=== PATIENT | female | born 2000 | race Caucasian/White ===

== ENCOUNTER 2022-09-14 18:51 | Emergency (ER) | payer OTHER, SELFPAY ==
[2022-09-14 19:03] VITALS: BP 156/94; PULSE 96; RESP 20; TEMP 36.8; O2SAT 100; BMI 30.2
--- NOTE | 2022-09-14 19:03 | ED_ITS ---
HPI - Extremity Injury (Lower) General Chief Complaint: Extremity Injury, Lower Stated Complaint: left ankle pain,swelling Time Seen by Provider: 09/14/22 19:47 Source: patient, RN notes reviewed and old records reviewed Mode of arrival: ambulatory History of Present Illness HPI Narrative: 21yo F w/no significant PMHx presenting to the ED c/o increasing swelling/pain to left foot x1 week. States he was seen at urgent care on had x-rays which showed soft tissue swelling otherwise unremarkable. denies known injury/fall or trauma, numbness, tingling, weakness, pedal edema, SOB, travel, history of clots complaint: foot injury Onset (ago): week(s) Related Data Allergies Allergy/AdvReac Type Severity Reaction Status Date / Time No Known Allergies Allergy Verified 09/14/22 19:07 Review of Systems Review of Systems: Constitutional: No Fever, No Chills ENT/Mouth: No Ear Pain, No Nasal Congestion, No sore throat, No Rhinorrhea, No Swallowing Difficulty Cardiovascular: No Chest Pain, No SOB Respiratory: No Cough, No Sputum Gastrointestinal: No Nausea, No Vomiting, No Abdominal pain Musculoskeletal: + joint pain, No Myalgias, + Joint Swelling Skin: No Skin Lesions, No rash Neuro: No Weakness, No Numbness, No Paresthesias Yes all other systems are reviewed and are negative Constitutional: Constitutional: Reports as per [facility] Past Medical History Attestation statement: The following information was validated with the patient. Source: old records reviewed Social History Social History Alcohol intake: never Smoked in Last 30 Days: No Use of substances other than those prescribed or required for medical reasons: No Advance Directives: No Advance Directives Information Provided: No Physical Exam Vital Signs: Vital Signs: Last Vital Signs Temp 98.3 F 09/14/22 19:03 Pulse 89 09/14/22 21:10 Resp 17 09/14/22 21:10 BP 138/79 09/14/22 21:10 Pulse Ox 100 09/14/22 21:10 O2 Del Method Room Air 09/14/22 21:10 BMI result Body Mass Index 30.2 Const: General: cooperative, healthy appearing and no acute distress Orientation/consciousness: patient oriented x3 Limitations: no limitations HEENT: Head: Yes normal to inspection and Yes atraumatic Ears: hearing grossly normal bilaterally General nose exam: Normal external nose present Face and sinus: Yes normal facial exam Eyes: General: appearance normal, both eyes and all related structures EOM: EOMs intact bilaterally Neck: Neck: Yes normal visual inspection and Yes no meningeal signs Resp: Effort & Inspection: normal respiratory effort and no respiratory distress Cardio: Rate: regular rate Peripheral pulses: Peripheral pulses 2+ throughout Skin: Rashes: no rashes Wounds: no wounds Neuro: General: patient oriented x3, tone normal and no meningeal signs Gait exam (Neuro): Antalgic gait present (Limping gait) Extrem: Other: +Left foot with faint ecchymosis & ttp to distal dorsal aspect. No appreciable swelling, erythema or LLE pitting edema. NV intact. No calf tenderness. No plantar ttp Left knee/tib-fib and ankle nontender Course Course Course Narrative: XR foot LT min 3V IMPRESSION: Normal left foot. > Luis wrap applied for comfort and stability. Patient supplied with crutches. Results discussed with patient including worrisome signs and symptoms and strict return precautions, and when to return to the emergency department. They verbalized understanding and feel safe for discharge at this time. Medications Administered Discontinued Medications Generic Name Dose Route Start Last Admin Trade Name Freq PRN Reason Stop Dose Admin Ketorolac Tromethamine 30 mg 09/14/22 20:20 09/14/22 20:54 Ketorolac Tromethamine 30 Mg/Ml Vial IM 09/14/22 20:21 30 mg ONCE ONE Administration Medical Decision Making Medical Decision Making [facility] Narrative: 21yo F w/no significant PMHx presenting to the ED c/o increasing swelling/pain to left foot x1 week. On exam vital signs stable, NAD, nontoxic appearing, physical exam as noted above with left foot dorsal aspect tenderness with faint ecchymosis. No appreciable swelling. No pitting edema. Neurovascularly intact. Concern for occult fracture vs sprain. No evidence of septic joint/arthritis or gout. Lower suspicion for DVT, necrotizing fasciitis or insect bite Plan: Repeat x-rays Please refer to course for remaining clinical decision making, interpretation of labs/imaging results, and discussions with consultants and/or family members. Differential Diagnosis Differential Diagnoses: The differential diagnosis associated with the presentation includes As above Radiology Impression Discussion of test interpretation with radiology: I have reviewed the radiologist's reading. External Record Review External record reviewed: Inpatient record, Office record, Outpatient record, Prior outpatient labs, Prior outpatient radiology, Primary care record and Outside ED record Tests considered The following testing was considered but not selected: Labs considered however not needed at this time without evidence of cellulitis or infection Prescription Management I considered prescription management with: Pain Medication Discharge Plan Discharge Clinical Impression: Foot pain Patient Disposition: Home, Self-Care Instructions: Arthralgia (ED) Additional Instructions: Your x-rays are unremarkable Ice and elevate her foot Wear Luis wrap for comfort and stability. Use crutches as needed You need to follow-up with her doctor and Podiatry If area begins to look infected, is red, pain persists or worsens, you have swelling affecting her entire leg/calf return to the ED Referrals: Piyush Cabral MD [Physician] - Stand Alone Forms: Work/School Release Interventions: ED Discharge Assessment Last Done: 09/14/22 21:12 Discharge Date/Time: 09/14/22 21:13
[2022-09-14 21:10] VITALS: BP 138/79; PULSE 89; RESP 17; O2SAT 100
== END 2022-09-14 21:13 | disposition home or self-care (01) ==
PROVIDERS: Emergency Provider Internal Medicine
DX: M25.572 Pain in left ankle and joints of left foot (principal)
CPT/HCPCS: 73630; 96372; 99284; J1885

== ENCOUNTER 2022-11-14 16:47 | Emergency (ER) | payer OTHER, SELFPAY ==
--- NOTE | ~2022-11-14 | XR_ITS ---
EXAMINATION: XR ANKLE, LEFT CLINICAL INFORMATION: Pain and swelling. COMPARISON: Left foot radiographs dated 09/14/2022. TECHNIQUE: AP, lateral, and mortise views of the left ankle. FINDINGS: Bony alignment and mineralization are normal. The ankle mortise is intact. No fracture, dislocation or left ankle joint effusion is seen. Boehler's angle is normal. There is no calcaneal spur. There is moderate soft tissue swelling, most pronounced adjacent to the medial malleolus. XR/XR ankle LT min 3V IMPRESSION: 1. No fracture, dislocation or left ankle joint effusion is seen. 2. There is moderate soft tissue swelling, most pronounced adjacent to the medial malleolus.
--- NOTE | ~2022-11-14 | US_ITS ---
EXAMINATION: US VENOUS ULTRASOUND WITH DOPPLER LOWER EXTREMITY, LEFT CLINICAL INFORMATION: Pain. COMPARISON: None available. TECHNIQUE: Ultrasound of the deep veins is performed from the hip to the calf with compression sonography and color and pulse Doppler assessment. Spectral analysis with color-flow imaging is performed. FINDINGS: There is normal venous compression and respiratory variation and augmented flow. The visualized common femoral vein, superficial femoral vein, profunda femoral vein, popliteal vein, and the trifurcation region shows no evidence of deep venous thrombosis. There is no significant popliteal fossa cyst. If the patient's symptoms persist, followup ultrasound in 5 days 7 days might be of value to exclude proximal propagation from a non-visualized calf vein. US/US venous duplex LE LT IMPRESSION: No DVT demonstrated in the left lower extremity.
--- NOTE | ~2022-11-14 | XR_ITS ---
EXAMINATION: XR KNEE, LEFT CLINICAL INFORMATION: Fall. Trauma to left knee COMPARISON: None available. TECHNIQUE: Four views of the left knee. FINDINGS: No fracture or joint effusion. Alignment is anatomic. Joint spaces are maintained. No abnormal soft tissue calcification. XR/XR knee LT 4V IMPRESSION: Normal left knee.
[2022-11-14 17:45] VITALS: BP 142/103; PULSE 114; RESP 18; TEMP 36.7; O2SAT 100; BMI 29.3
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
== END 2022-11-14 22:45 | disposition home or self-care (01) ==
PROVIDERS: Emergency Provider Internal Medicine
DX: S80.02XA Contusion of left knee, initial encounter (principal); S93.402A Sprain of unspecified ligament of left ankle, initial encounter; M79.605 Pain in left leg; M25.562 Pain in left knee; R60.0 Localized edema; W01.0XXA Fall on same level from slipping, tripping and stumbling without subsequent striking against object, initial encounter; Y93.9 Activity, unspecified; Y92.9 Unspecified place or not applicable; Y99.9 Unspecified external cause status
CPT/HCPCS: 73564; 73610; 93971; 99283; 99284

== ENCOUNTER 2023-02-14 15:09 | Outpatient (REF) | payer OTHER, SELFPAY ==
--- NOTE | 2023-02-14 15:12 | EMG_ITS ---
Chief complaint: Numbness and tingling on both legs, back pain Reason for referral: Evaluate for radiculopathy or neuropathy Referred by: Vlad ZAPATA Procedure done: Bilateral lower extremity NCS/EMG Precautions and/or limitations: None The limb temperature was monitored continuously and remained between 32-36 degrees C during the performance of the NCS. Nerve Conduction Studies Anti Sensory Summary Table ?Stim Site NR Onset (ms) Norm Onset (ms) Peak (ms) Norm Peak (ms) O-P Amp (?V) Norm O-P Amp Site1 Site2 Delta-0 (ms) Dist (cm) Jose (m/s) Norm Jose (m/s) Left Sural Anti Sensory (Lat Mall) Calf ? 2.6 3.2 <4.0 16.2 >5.0 Calf Lat Mall 2.6 14.0 54 Right Sural Anti Sensory (Lat Mall) Calf ? 2.6 3.3 <4.0 18.1 >5.0 Calf Lat Mall 2.6 14.0 54 Motor Summary Table ?Stim Site NR Onset (ms) Norm Onset (ms) O-P Amp (mV) Norm O-P Amp iAmp (mV) Amp (1st) (%) Site1 Site2 Delta-0 (ms) Dist (cm) Jose (m/s) Norm Jose (m/s) Left Peroneal Motor (Ext Dig Brev) Ankle ? 3.1 <4.0 9.1 >2.5 11.8 100.0 Ankle Ext Dig Brev 3.1 0.0 B Fib ? 8.4 8.3 10.9 91.2 B Fib Ankle 5.3 29.5 56 >40 Poplt ? 9.1 8.4 11.2 92.3 Poplt B Fib 0.7 5.0 71 >40 Right Peroneal Motor (Ext Dig Brev) Ankle ? 3.1 <4.0 4.7 >2.5 5.7 100.0 Ankle Ext Dig Brev 3.1 0.0 B Fib ? 8.3 4.8 5.8 102.1 B Fib Ankle 5.2 29.0 56 >40 Poplt ? 8.9 4.7 5.7 100.0 Poplt B Fib 0.6 5.0 83 >40 Left Tibial Motor (Abd Lipscomb Brev) Ankle ? 2.7 <5 16.5 >2.5 23.0 100.0 Ankle Abd Lipscomb Brev 2.7 0.0 Knee ? 9.3 9.9 15.0 60.0 Knee Ankle 6.6 35.0 53 >40 Right Tibial Motor (Abd Lipscomb Brev) Ankle ? 3.1 <5 16.5 >2.5 25.9 100.0 Ankle Abd Lipscomb Brev 3.1 0.0 Knee ? 8.8 13.4 21.8 81.2 Knee Ankle 5.7 33.0 58 >40 EMG ?Side Muscle Nerve Root Ins Act Fibs Psw Amp Dur Poly Recrt Int Pat Comment Right AbdHallucis MedPlantar S1-2 Nml Nml Nml Nml Nml 0 Nml Complete Right AntTibialis Dp Br Peron L4-5 Nml Nml Nml Nml Nml 0 Nml Complete Right PostTibialis Tibial L5, S1 Nml Nml Nml Nml Nml 0 Nml Complete Right MedGastroc Tibial S1-2 Nml Nml Nml Nml Nml 0 Nml Complete Right VastusMed Femoral L2-4 Nml Nml Nml Nml Nml 0 Nml Complete Left AbdHallucis MedPlantar S1-2 Nml Nml Nml Nml Nml 0 Nml Complete Left AntTibialis Dp Br Peron L4-5 Nml Nml Nml Nml Nml 0 Nml Complete Left PostTibialis Tibial L5, S1 Nml Nml Nml Nml Nml 0 Nml Complete Left MedGastroc Tibial S1-2 Nml Nml Nml Nml Nml 0 Nml Complete Left VastusMed Femoral L2-4 Nml Nml Nml Nml Nml 0 Nml Complete Paraspinal EMG ?Side Muscle Nerve Root Ins Act Fibs Psw Comment Right Lumbar Upper Rami Nml Nml Nml Right Lumbar Mid Rami Nml Nml Nml Right Lumbar Lower Rami Nml Nml Nml Left Lumbar Upper Rami Nml Nml Nml Left Lumbar Mid Rami Nml Nml Nml Left Lumbar Lower Rami Nml Nml Nml FINDINGS: All motor and sensory nerves tested showed normal latencies, amplitudes and conduction velocities. Concentric needle EMG was performed in selected muscles of the bilateral lower extremity and lumbar paraspinals. Study did not reveal signs of electric abnormalities as shown in the table below. IMPRESSION: 1. This is a normal study. 2. There is no electrodiagnostic evidence for peroneal neuropathy, tibial neuropathy, lumbosacral plexopathy, lumbar radiculopathy, or peripheral neuropathy. Thank you for your kind referral. Esther Mcdermott MD, MARIA Board Certified, [place] [employer] and [employer] (ABPMR) Board Certified, [place] Board [employer] Electrodiagnostic [employer] (ABEM) CODIN [id number] x 2 MTDD
== END 2023-02-14 15:10 | disposition home or self-care (01) ==
LOC: HO.NEURO 15:09
PROVIDERS: Visit Provider Physician Assistant
DX: G90.09 Other idiopathic peripheral autonomic neuropathy (principal)
CPT/HCPCS: 95886; 95909

== ENCOUNTER → 2023-02-14 15:12 | Outpatient (BNV) | payer OTHER, SELFPAY | PROVIDERS: Visit Provider Physical Medicine & Rehabilitation | DX: R20.2 Paresthesia of skin (principal); R20.0 Anesthesia of skin; M54.50 Low back pain, unspecified | CPT/HCPCS: 95886; 95909 ==

== ENCOUNTER 2023-11-24 16:31 | Emergency (ER) | payer OTHER, SELFPAY ==
--- NOTE | ~2023-11-24 | CT_ITS ---
EXAMINATION: CT ABDOMEN AND PELVIS WITHOUT CONTRAST CLINICAL INFORMATION: Hematuria. Flank pain. COMPARISON: None available. TECHNIQUE: Multidetector volumetric imaging was performed from the superior aspect of the liver through the pubic symphysis. Sagittal and coronal reformatted images were obtained on the technologist's workstation. This CT examination was performed using dose optimization techniques as appropriate, variously including the following: *Automated exposure control *Adjustment of mA and/or kV according to patient size (this includes techniques or standardized protocols for targeted exams where dose is matched to indication/reason for exam; i.e. extremities or head) *Use of iterative reconstruction technique DLP: 504 mGy-cm FINDINGS: LUNG BASES: The visualized lung bases are unremarkable. LIVER, GALLBLADDER, AND BILIARY TREE: The liver is normal in size, shape, and attenuation. No focal hepatic lesion or biliary ductal dilatation is present. The gallbladder is unremarkable with no evidence of radiopaque gallstones, gallbladder wall thickening, or obvious pericholecystic inflammatory changes. PANCREAS: Unremarkable. SPLEEN: Unremarkable. ADRENAL GLANDS: Unremarkable. KIDNEYS AND URETERS: The kidneys are normal in size, shape, and attenuation. No hydronephrosis, hydroureter, or calculi seen. No perinephric stranding. BLADDER: Unremarkable. GASTROINTESTINAL TRACT: The small and large bowel are unremarkable. The appendix is unremarkable. ABDOMINAL WALL: No significant hernia is appreciated. LYMPH NODES: Normal. VASCULAR: Unremarkable. PELVIC VISCERA: Unremarkable. OSSEOUS STRUCTURES: Unremarkable. CT/CT abdomen pelvis wo IV con IMPRESSION: No significant abnormality. Fleischner guidelines were followed. Electronically signed by: Alexx Leo MD 11/24/2023 09:30 PM EDT
[2023-11-24 16:43] VITALS: BP 146/92; PULSE 101; RESP 20; TEMP 37.2; O2SAT 100; BMI 27.5
--- NOTE | 2023-11-24 16:46 | ED_ITS ---
HPI - General Adult General Chief complaint: General Medical Stated complaint: pain when using the bathroom, blood in urine Time Seen by Provider: 11/24/23 20:18 Source: patient Mode of arrival: ambulatory Limitations: no limitations History of Present Illness ED Provider: Harish TOMAS HPI narrative: 23-year-old female with IgA nephropathy presents to ED for dysuria, mild hematuria, right lower back flank pain. Patient denies any nausea vomiting. Patient denies any fever or chills. Patient denies any recent trauma to abdomen or flank area. Related Data Previous Rx's ?Medication ?Instructions ?Recorded ibuprofen 600 mg tablet 600 mg PO Q6H PRN pain #30 tabs 11/14/22 ciprofloxacin HCl 500 mg tablet 500 mg PO BID 7 days #14 tabs 11/24/23 naproxen 500 mg tablet 500 mg PO BID PRN pain 7 days #14 11/24/23 tabs Allergies Allergy/AdvReac Type Severity Reaction Status Date / Time No Known Allergies Allergy Verified 11/24/23 16:46 Review of Systems 2 Review of Systems: Right lower back flank pain, dysuria, hematuria Yes all other systems are reviewed and are negative [facility] Social History Social History Alcohol intake: never Advance Directives: No Advance Directives Information Provided: No Do you have a plan to hurt others: No Plan Physical Exam ED Vital Signs: Vital Signs - 24 hr 11/24/23 16:43 11/24/23 21:46 11/24/23 23:10 Temperature 98.9 F 97.1 F 97.1 F Pulse Rate 101 H 97 97 Respiratory Rate 20 16 16 Blood Pressure 146/92 H 122/88 122/88 Pulse Oximetry 100 98 98 Oxygen Delivery Method Room Air Room Air Room Air BMI result Body Mass Index 27.5 Const General: cooperative, healthy appearing, comfortable, no acute distress, well developed, alert, awake and Physically active Orientation/consciousness: patient oriented x3 HENMT Head: Yes normal to inspection, Yes No palpable skull fracture present, Yes normocephalic, Yes atraumatic and No abrasion Eyes General: appearance normal, both eyes and all related structures Neck Neck: Yes normal visual inspection, Yes full ROM, Yes no lymphadenopathy, Yes no meningeal signs, Yes trachea midline, Yes supple, No anterior neck swelling and No tender Chest Chest palpation & inspection: normal inspection of the chest and normal palpation of entire chest wall Resp Effort & Inspection: normal respiratory effort and able to speak in complete sentences Auscultation: clear to auscultation bilaterally Cardio Jugular venous distension: no JVD Heart sounds: S1 normal heart sound present and S2 normal heart sound present GI Inspection: Yes normal to inspection Palpation (GI): Soft to palpation, not firm, nontender, no guarding and not rigid General: Yes CVA tenderness (right) Back/Spine/Pelvis Back: CVA tenderness (right) Skin General skin exam: no rashes or lesions noted, elasticity normal and turgor normal Neuro General: patient oriented x3, gait normal, tone normal, moves all extremities, Normal light touch and pain sensation, no meningeal signs, no focal motor deficits, CN's II-XI intact bilaterally and normal sensation to monofilament Extrem General: Yes normal to inspection, Yes full ROM and Yes capillary refill normal Psych Appearance: grossly normal, well kempt and not disheveled Course Course Course Narrative: This is a Rapid Medical Examination (RME) performed by Steff Ni PA-C in triage. Full HPI, ROS, assessment and treatment plan per primary provider in the Main ED. 23 yo female hx of IgA nephropathy here for eval of dysuria and hematuria x3 days. admits to right flank pain. LMP 2 wks ago. 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 History of UTIs, this feels similar. + abd soft, nd/nt. no cvat. Plan: labs, UA Medical Decision Making Medical Decision Making [facility] Narrative: 23-year-old female with history of IgA nephropathy presents for dysuria, mild hematuria right lower back flank pain. Patient's vital signs stable. Negative elevated white blood cell count. Kidney function normal. CT scan negative for stones or fat stranding around kidneys. Patient will be treated as UTI mild pyelonephritis. Patient is not septic. Patient explained worrisome signs and informed to follow up with primary care provider. Differential Diagnosis Differential Diagnoses: The differential diagnosis associated with the presentation includes (Pyelonephritis, UTI, kidney stone) Admission/Observation Consideration of admission/observation: Escalation of care including admission/observation considered Lab Data [facility] Lab Attestation statement: I reviewed the patient's lab results. 11/24/23 17:46 11/24/23 17:46 Labs: Lab Results 11/24/23 Range/Units 17:46 WBC 9.5 (4.8-10.8) X10*3/uL RBC 4.90 (4.20-5.50) X10*6/uL Hgb 14.3 (12.0-16.0) g/dl Hct 43.4 (37.0-47.0) % MCV 88.6 (80.0-98.0) fL MCH 29.2 (27.0-33.0) pg MCHC 32.9 (31.0-35.0) g/dl RDW 12.8 (11.0-16.0) % Plt Count 323 (160-400) X10*3/uL MPV 9.9 (9.4-12.3) fL Immature Gran % (Auto) 0.3 (0.0-0.4) % Neut % (Auto) 63.4 (45-73) % Lymph % (Auto) 27.8 (20-40) % [place] % (Auto) 7.4 (2-11) % Eos % (Auto) 0.6 (0-4) % Baso % (Auto) 0.5 (0-2) % Lymph # (Auto) 2.6 (1.2-4.9) X10*3/uL [place] # (Auto) 0.7 (0.1-1.2) X10*3/uL Eos # (Auto) 0.1 (0.0-0.4) X10*3/uL Baso # (Auto) 0.1 (0.0-0.2) X10*3/uL Abs Immat Gran (auto) 0.03 (0.00-0.03) X10*3/uL Absolute Neuts (auto) 6.0 (2.0-8.3) x10*3/uL Absolute Nucleated RBC 0.000 (0.0-0.012) X10*3/uL Nucleated RBC % (auto) 0.0 (0.0-0.2) /100WBC Sodium 140 (135-145) mmol/L Potassium 4.8 (3.3-5.1) mmol/L Chloride 107 (96-108) mmol/L Carbon Dioxide 25 (22-29) mmol/L Anion Gap 13 (12-20) BUN 14 (9-16) mg/dL Creatinine 0.83 (0.5-1.4) mg/dL Estim Creat Clear Calc 105.7 Estimated GFR > 60 Random Glucose 79 (60-115) mg/dL Calcium 9.4 (8.4-10.2) mg/dL Magnesium 1.8 (1.6-2.6) mg/dL Total Bilirubin 0.3 (0.0-1.0) mg/dL AST 18 (5-31) U/L ALT 14 (0-31) U/L Alkaline Phosphatase 83 (39-117) U/L Total Protein 6.8 (6.5-8.0) g/dL Albumin 3.8 (3.5-5.0) g/dL Urine Color Yellow Urine Appearance Turbid Urine pH 7.5 (5.0-9.0) Ur Specific [place] 1.025 (1.005-1.025) Urine Protein 100 (2+) H (Neg-Trace) mg/dL Urine Glucose (UA) Negative (Negative) mg/dL Urine Ketones Negative (Negative) mg/dL Urine Blood Moderate (2+) H (Negative) Urine Nitrite Positive H (Negative) Ur Leukocyte Esterase Moderate (2+) H (Negative) Urine RBC >20 H (0-2) /HPF Urine WBC >50 H (0-5) /HPF Ur Squamous Epith Cells 0-2 (0-2) /HPF Urine Bacteria 4+ (None Seen) Hyaline Casts 0-2 (0-2) /LPF Urine Test NEGATIVE (NEGATIVE) Independent Interpretation I performed an independent interpretation of an: CT Scan Radiology Impression Discussion of test interpretation with radiology: I have reviewed the radiologist's reading. Independent Historian Clinical information obtained from an independent historian. History obtained from or confirmed by: Other (Patient) External Record Review External record reviewed: Other (Prior visit) Prescription Management I considered prescription management with: Antibiotic Discharge Plan Discharge Clinical Impression: UTI (urinary tract infection), Pyelonephritis Patient Disposition: Home, Self-Care Instructions: Urinary Tract Infection in Women (ED), Kidney Infection (ED) Additional Instructions: You are being treated clinically as UTI/mild pyelonephritis. Recommend follow- up with your primary care provider. Return immediately for any nausea, vomiting, fever, chills, severe flank pain, abdominal pain, gross hematuria, dysuria, or any other concerning symptoms. CT scan came back normal. UA shows UTI Prescriptions: New ciprofloxacin HCl 500 mg tablet 500 mg PO BID 7 Days Qty: 14 0RF naproxen 500 mg tablet 500 mg PO BID PRN (Reason: pain) 7 Days Qty: 14 0RF No Action ibuprofen 600 mg tablet 600 mg PO Q6H PRN (Reason: pain) Qty: 30 0RF Stand Alone Forms: Work/School Release Interventions: ED Discharge Assessment Last Done: 11/24/23 23:10 Discharge Date/Time: 11/24/23 22:49 Print Language: Latvian
[2023-11-24 17:54] LABS: MANUAL DIFF FLAG NO
[2023-11-24 17:57] LABS: Appearance Urine Turbid; Color Urine Yellow; Glucose Urine UA Negative (Negative); Leukocyte Esterase Urine Moderate (2+) (Negative); Nitrite Urine Positive (Negative); PH 7.5 (5.0-9.0); Specific Gravity - Urine 1.025 (1.005-1.025); UMIC TRIGGER UACC YES; Urine Blood Moderate (2+) (Negative); Urine Ketones Negative (Negative); Urine Protein 100 (2+) mg/dL (Neg-Trace)
[2023-11-24 18:02] LABS: Basophils Absolute Auto 0.1 X10*3/uL (0.0-0.2); Basophils Percent Auto 0.5 % (0-2); Eosinophils Absolute Auto 0.1 X10*3/uL (0.0-0.4); Eosinophils Percent Auto 0.6 % (0-4); Hematocrit 43.4 % (37.0-47.0); Hemoglobin 14.3 g/dl (12.0-16.0); Imm Gran Abs Auto 0.03 X10*3/uL (0.00-0.03); Imm Gran Pct Auto 0.3 % (0.0-0.4); Lymphocytes Absolute Auto 2.6 X10*3/uL (1.2-4.9); Lymphocytes Percent Auto 27.8 % (20-40); Mean Corpuscular HGB Conc 32.9 g/dl (31.0-35.0); Mean Corpuscular Hemoglobin 29.2 pg (27.0-33.0); Mean Corpuscular Volume 88.6 fL (80.0-98.0); Mean Platelet Volume 9.9 fL (9.4-12.3); Monocytes Absolute Auto 0.7 X10*3/uL (0.1-1.2); Monocytes Percent Auto 7.4 % (2-11); Neutrophils Percent Auto 63.4 % (45-73); Platelet Count 323 X10*3/uL (160-400); Red Cell Distribution Width 12.8 % (11.0-16.0); White Blood Count 9.5 X10*3/uL (4.8-10.8)
[2023-11-24 18:03] LABS: UPreg QC Valid YES; Urine Pregnancy NEGATIVE (NEGATIVE)
[2023-11-24 18:05] LABS: Bacteria Urine 4+ (None Seen); Hyaline Casts Urine 0-2 /LPF (0-2); RBC Urine >20 /HPF (0-2); Squamous Epithelial Cell Urine 0-2 /HPF (0-2); UACC Culture Trigger YES; WBC Urine >50 /HPF (0-5)
[2023-11-24 18:18] LABS: Alanine Aminotransferase 14 U/L (0-31); Albumin Level 3.8 g/dL (3.5-5.0); Alkaline Phosphatase 83 U/L (39-117); Anion Gap 13 (12-20); Aspartate Amino Transferase 18 U/L (5-31); Bilirubin Total 0.3 mg/dL (0.0-1.0); Blood Urea Nitrogen 14 mg/dL (9-16); Calcium 9.4 mg/dL (8.4-10.2); Carbon Dioxide 25 mmol/L (22-29); Chloride 107 mmol/L (96-108); Creatinine Clr Calc Pharmacy 105.7; Estimated Glomerular Filt Rate > 60; Glucose Random 79 mg/dL (60-115); Magnesium 1.8 mg/dL (1.6-2.6); Potassium 4.8 mmol/L (3.3-5.1); Sodium 140 mmol/L (135-145); Total Protein 6.8 g/dL (6.5-8.0)
[2023-11-24 21:46] VITALS: BP 122/88; PULSE 97; RESP 16; TEMP 36.2; O2SAT 98
[2023-11-24 23:10] VITALS: BP 122/88; PULSE 97; RESP 16; TEMP 36.2; O2SAT 98
== END 2023-11-24 22:49 | disposition home or self-care (01) ==
PROVIDERS: Physician Assistant Medical; Emergency Provider Internal Medicine; PCP Internal Medicine
DX: N39.0 Urinary tract infection, site not specified (principal); I80.8 Phlebitis and thrombophlebitis of other sites; R31.9 Hematuria, unspecified; R30.0 Dysuria; M54.50 Low back pain, unspecified; Z79.899 Other long term (current) drug therapy
CPT/HCPCS: 36415; 74176; 80053; 81001; 81025; 83735; 85025; 87086; 87088; 87186; 99283; 99284

== ENCOUNTER 2025-01-26 03:34 | Emergency (ER) | payer OTHER, SELFPAY ==
--- OUTSIDE RECORDS SUMMARY | 2024-01-09 13:30 | XMS_ITS | Encounter Summary ---
Author Organization [facility] Address [address] [place] [address] Care Team Providers Care Feeder Switchboard Operator Name Role Phone Barbie Griffith MD Primary Care Provider [phone] Encounter Details Date Type Department Care Team (Late st Contact Info) Description 01/09/2024 2:30 PM EDT Hospital Encounter TH HISTORIC ENCOUNTERS EASTERN CONVERSION ONLY Oswaldo Liz PA [address] [place] [id number] Social History Tobacco Use Types Packs/Day Years Used Date Smoking Tobacco: Never Smokeless Tobacco: Never Alcohol Use Standard Drinks/Week Comments Yes 3 (1 standard drink = 0.6 oz pur e alcohol) Socially Housing Instability Answer Date Recorde d Are you worried that in the next 2 months you may not have stable housing? Yes 08/31/2024 Food Access & Nutrition Answer Date Rec orded Do you have access to a vari ety of food including fruits and vegetables? Yes 08/31/2024 Access to Healthcare Answer Date Record ed Within the last 3 months, ho w many times did you visit the emergency department for your medical care? 0 08/31/2024 Health Literacy Answer Date Recorded How often do you need to hav e someone help you when you read instructions, pamphlets, or other written material from your doctor or pharmacy? Never 08/31/2024 Caregiver: How often do you need to have someone help you when you read instructions, pamphlets, or other written material from your doctor or pharmacy? Not on file 08/31/2024 Financial Risk Answer Date Recorded How hard is it for you to pa y for the very basics like food, housing, medical care, and air conditioning / heating? Somewhat hard 08/31/2024 Transportation Answer Date Recorded Has the lack of transportati on kept you from meetings, work, or from getting things needed for daily living? No Has the lack of transportati on kept you from medical appointments or from getting medications? No 08/31/2024 Social Isolation Answer Date Recorded How often do you feel lonely or isolated from those around you? Sometimes 08/31/2024 Food Risk Answer Date Recorded Within the past 12 months we worried whether our food would run out before we got money to buy more. Sometimes true 025 Within the past 12 months th e food we bought just didn't last and we didn't have money to get more. Never true 08/31/2024 Dependent Care Answer Date Recorded Do you need help finding or paying for care for your loved ones. For example, child nurse or elderly care for an older adult? No 08/31/2024 Education Answer Date Recorded Do you think completing more education or training, like finishing a GED, going to college, or learning a trade, would be helpful for you? Yes 08/31/2024 Employment and Income Answer Date Recor ded During the last four weeks, have you been actively looking for work? Unable to respond 08/31/2024 Living Situation Answer Date Recorded What is your living situation? Unrecognized valu e 08/31/2024 Comments Unknown Sex and Gender Information Value Date Recorded Sex Assigned at Not on file Legal Sex Female 5:29 AM EST Gender Identity Female 01/12/2024 3:22 PM EST Sexual Orientation Not on file documented as of this encounter Plan of Treatment Upcoming Encounters Date Type Department Care Team (Late st Contact Info) Description 02/02/2025 1:15 PM EST Office Visit Adult Medicine [address] [phone] Oswaldo Liz PA [address] [place] [id number] 06/29/2025 3:15 PM EDT Office Visit Nephrology [id number] [place] [address] Danny Jacques MD [address] [facility] [address] [place] [address] documented as of this encounter Visit Diagnoses Not on filedocumented in this encounter Care Teams Feeder Switchboard Operator Relationship Specialty Start Date End Date Barbie Griffith MD PCP - General 02/27/22 01/09/24 documented as of this encounter
[2025-01-26 03:41] VITALS: BP 129/85; PULSE 87; RESP 18; TEMP 36.8; O2SAT 98; BMI 27.3
--- NOTE | 2025-01-26 03:52 | PC.NURSE ---
pt reports abdominal pain starting today around 0100, urge to urinate and pain woke pt up. x3 episodes of urine with blood since 010. denies fever or other symptoms.
[2025-01-26 03:59] LABS: MANUAL DIFF FLAG NO
[2025-01-26 04:00] LABS: Hematocrit 42.2 % (37.0-47.0); Hemoglobin 14.1 g/dl (12.0-16.0); Imm Gran Abs Auto 0.03 X10*3/uL (0.00-0.03); Imm Gran Pct Auto 0.3 % (0.0-0.4); Lymphocytes Absolute Auto 2.9 X10*3/uL (1.2-4.9); Mean Corpuscular HGB Conc 33.4 g/dl (31.0-35.0); Mean Corpuscular Hemoglobin 29.3 pg (27.0-33.0); Mean Corpuscular Volume 87.7 fL (80.0-98.0); NRBC Abs Auto 0.000 X10*3/uL (0.0-0.012); NRBC Pct Auto 0.0 /100WBC (0.0-0.2); Platelet Count 302 X10*3/uL (160-400); Red Blood Count 4.81 X10*6/uL (4.20-5.50); White Blood Count 9.2 X10*3/uL (4.8-10.8)
--- NOTE | 2025-01-26 04:08 | PC.NURSE ---
pt reports hx of kidney disease since . see's nephrology. pt barely has time to make it to the bathroom, when the urge to urinate comes on it is with urgency. .
[2025-01-26 04:14] LABS: Alanine Aminotransferase 10 U/L (0-31); Albumin Level 3.8 g/dL (3.5-5.0); Alkaline Phosphatase 70 U/L (39-117); Anion Gap 13 (12-20); Aspartate Amino Transferase 14 U/L (5-31); Blood Urea Nitrogen 13 mg/dL (9-16); Calcium 8.7 mg/dL (8.4-10.2); Carbon Dioxide 21 mmol/L (22-29); Chloride 108 mmol/L (96-108); Creatinine Clr Calc Pharmacy 129.2; Estimated Glomerular Filt Rate > 60; Potassium 4.1 mmol/L (3.3-5.1); Sodium 138 mmol/L (135-145); Total Protein 6.5 g/dL (6.5-8.0)
[2025-01-26 04:20] LABS: UPreg QC Valid YES
[2025-01-26 04:22] LABS: Appearance Urine Turbid; Glucose Urine UA Negative (Negative); PH 5.5 (5.0-9.0); Specific Gravity - Urine 1.025 (1.005-1.025); UMIC TRIGGER UACC YES
[2025-01-26 04:31] LABS: UACC Culture Trigger YES
--- NOTE | 2025-01-26 04:33 | PC.NURSE ---
pt medicated per MAR
--- NOTE | 2025-01-26 04:46 | ED.ABDPAIN ---
HPI - Abdominal Pain General Chief Complaint: Abdominal Pain Stated Complaint: abd pain Time Seen by Provider: 01/26/25 04:02 Source: patient Mode of arrival: ambulatory Limitations: no limitations History of Present Illness ED Provider: Dr. Maria G Garzon HPI narrative: 24-year-old female with a history of IgA nephropathy presenting with suprapubic abdominal pain and dysuria ongoing for the last 3 days or so. Patient reports that today she developed worsening discomfort with urination that woke her from sleep so she came to the hospital emergently for evaluation. No associated fever. Denies changes in her chronic constipation. No reported hematochezia or melena. She denies vaginal bleeding or discharge. Last menstrual cycle was at the beginning of January. Otherwise has been feeling well. Last UTI was a couple of years ago and was treated with Macrobid. She does admit to history of yeast infections when using other antibiotics. Related Data Previous Rx's ?Medication ?Instructions ?Recorded ibuprofen 600 mg tablet 600 mg PO Q6H PRN pain #30 tabs 11/14/22 ciprofloxacin HCl 500 mg tablet 500 mg PO BID 7 days #14 tabs 11/24/23 naproxen 500 mg tablet 500 mg PO BID PRN pain 7 days #14 11/24/23 tabs nitrofurantoin 100 mg PO Q12H 7 days #14 caps 01/26/25 monohydrate/macrocrystals 100 mg capsule (Macrobid) phenazopyridine 100 mg tablet 100 mg PO TID PRN pain 6 doses #6 01/26/25 (Pyridium) tabs Allergies Allergy/AdvReac Type Severity Reaction Status Date / Time No Known Allergies Allergy Verified 01/26/25 03:44 Review of Systems Review of Systems As per HPI, full review of systems performed and negative but for the above mentioned pertinent positives and negatives. [facility] Social History Social History Alcohol intake: never Smoked in Last 30 Days: No Use of substances other than those prescribed or required for medical reasons: No Patient : No Physical Exam ED Exam Exam: GENERAL: Ill-Appearing, appears uncomfortable. SKIN: Normal skin color for ethnicity, warm, dry, no rashes noted. HEENT: Normocephalic, atraumatic, no stridor, dry mucous membranes, dentition intact, EOMI, PERRLA. NECK: Soft, supple, full ROM, midline structures nontender, no step-offs, no deformities, no lymphadenopathy. CHEST: Heart regular rhythm, no murmurs, symmetric chest rise and fall. PULMONARY: Clear to auscultation bilaterally, diminished at the bases, no labored breathing, no wheezes/rhales/rhonchi. ABDOMINAL: Soft, nondistended, suprapubic tenderness to palpation with voluntary guarding, quiet bowel sounds in all quadrants. : Deferred. MUSCULOSKELETAL: Normal tone, full range of motion, no deformities, no peripheral edema. NEURO: Alert and oriented x3, CN II through XII intact, equal strength and sensation bilateral upper and lower extremities, no focal neurologic deficits. PSYCHIATRIC: Flat affect, fluid speech, good eye contact and appropriate demeanor. Vital Signs: Vital Signs - 24 hr 01/26/25 03:41 Temperature 98.3 F Pulse Rate 87 Respiratory Rate 18 Blood Pressure 129/85 Pulse Oximetry 98 Oxygen Delivery Method Room Air BMI result Body Mass Index 27.3 Medical Decision Making Medical Decision Making [facility] Narrative: This patient presents today with a chief complaint of pelvic pain and dysuria. Differential diagnosis is broad and would include ovarian torsion, PID, TOA, if ectopic , pyelonephritis, kidney stone, UTI among many others. A broad-based workup based on history and physical exam was obtained Patient was given Bentyl, Pyridium for pain control. Urine is positive for infection. Last culture grew E coli, resistant to ampicillin, sensitive to Macrobid. Using shared decision making, plan for discharge home to follow-up with primary care and/or specialist. Patient understands and agrees with plan for discharge. Discharged home in stable condition. Differential Diagnosis Differential Diagnoses: The differential diagnosis associated with the presentation includes (As above) Admission/Observation Consideration of admission/observation: Escalation of care including admission/observation considered Lab Data [facility] Lab Attestation statement: I reviewed the patient's lab results. 01/26/25 03:52 01/26/25 03:52 Labs: Lab Results 01/26/25 01/26/25 Range/Units 03:52 04:10 WBC 9.2 (4.8-10.8) X10*3/uL RBC 4.81 (4.20-5.50) X10*6/uL Hgb 14.1 (12.0-16.0) g/dl Hct 42.2 (37.0-47.0) % MCV 87.7 (80.0-98.0) fL MCH 29.3 (27.0-33.0) pg MCHC 33.4 (31.0-35.0) g/dl RDW 12.5 (11.0-16.0) % Plt Count 302 (160-400) X10*3/uL MPV 9.6 (9.4-12.3) fL Immature Gran % (Auto) 0.3 (0.0-0.4) % Neut % (Auto) 60.1 (45-73) % Lymph % (Auto) 31.7 (20-40) % [place] % (Auto) 6.4 (2-11) % Eos % (Auto) 0.8 (0-4) % Baso % (Auto) 0.7 (0-2) % Lymph # (Auto) 2.9 (1.2-4.9) X10*3/uL [place] # (Auto) 0.6 (0.1-1.2) X10*3/uL Eos # (Auto) 0.1 (0.0-0.4) X10*3/uL Baso # (Auto) 0.1 (0.0-0.2) X10*3/uL Abs Immat Gran (auto) 0.03 (0.00-0.03) X10*3/uL Absolute Neuts (auto) 5.5 (2.0-8.3) x10*3/uL Absolute Nucleated RBC 0.000 (0.0-0.012) X10*3/uL Nucleated RBC % (auto) 0.0 (0.0-0.2) /100WBC Sodium 138 (135-145) mmol/L Potassium 4.1 (3.3-5.1) mmol/L Chloride 108 (96-108) mmol/L Carbon Dioxide 21 L (22-29) mmol/L Anion Gap 13 (12-20) BUN 13 (9-16) mg/dL Creatinine 0.60 (0.5-1.4) mg/dL Estim Creat Clear Calc 129.2 Estimated GFR > 60 Random Glucose 99 (60-115) mg/dL Calcium 8.7 D (8.4-10.2) mg/dL Total Bilirubin 0.3 (0.0-1.0) mg/dL AST 14 (5-31) U/L ALT 10 (0-31) U/L Alkaline Phosphatase 70 (39-117) U/L Total Protein 6.5 (6.5-8.0) g/dL Albumin 3.8 (3.5-5.0) g/dL Urine Color Brown A Urine Appearance Turbid Urine pH 5.5 (5.0-9.0) Ur Specific [place] 1.025 (1.005-1.025) Urine Protein 300 (3+) H (Neg-Trace) mg/dL Urine Glucose (UA) Negative (Negative) mg/dL Urine Ketones Negative (Negative) mg/dL Urine Blood Large (3+) H (Negative) Urine Nitrite Negative (Negative) Ur Leukocyte Esterase Moderate (2+) H (Negative) Urine RBC >20 H (0-2) /HPF Urine WBC >50 H (0-5) /HPF Ur Squamous Epith Cells 3-5 (0-2) /HPF Urine Bacteria 2+ (None Seen) Hyaline Casts 0-2 (0-2) /LPF Urine Yeast Present Urine Test NEGATIVE (NEGATIVE) External Record Review External record reviewed: Inpatient record and Prior outpatient labs Prescription Management I considered prescription management with: Pain Medication and Antibiotic Chronic Conditions Patient?s care impacted by: Other (IgA nephropathy) Medications Administered Discontinued Medications Generic Name Dose Route Start Last Admin Trade Name Freq PRN Reason Stop Dose Admin Dicyclomine HCl 20 mg 01/26/25 04:21 01/26/25 04:29 Dicyclomine Hcl 10 Mg Capsule PO 01/26/25 04:22 20 mg ONCE ONE Administration Phenazopyridine HCl 200 mg 01/26/25 04:21 01/26/25 04:29 Phenazopyridine Hcl 200 Mg Tablet PO 01/26/25 04:22 200 mg ONCE ONE Administration Discharge Plan Discharge Clinical Impression: UTI (urinary tract infection), Suprapubic abdominal pain Patient Disposition: Home, Self-Care Instructions: Urinary Tract Infection in Women (ED) Additional Instructions: Take your antibiotic as prescribed until the course is completed. Do not stop this medication early if you start to feel better. Return to the emergency department with any new or worsening symptoms including: Worsening pain, fevers greater than 100? despite antibiotic treatment, vomiting, or any new symptom that concerns you. Call 911 with any medical emergency. Prescriptions: New phenazopyridine [Pyridium] 100 mg tablet 100 mg PO TID PRN (Reason: pain) Qty: 6 0RF nitrofurantoin monohyd/m-cryst [Macrobid] 100 mg capsule 100 mg PO Q12H 7 Days Qty: 14 0RF Rx Instructions: must administer with a meal/food No Action ibuprofen 600 mg tablet 600 mg PO Q6H PRN (Reason: pain) Qty: 30 0RF ciprofloxacin HCl 500 mg tablet 500 mg PO BID 7 Days Qty: 14 0RF naproxen 500 mg tablet 500 mg PO BID PRN (Reason: pain) 7 Days Qty: 14 0RF Print Language: Luxembourgish
[2025-01-26 05:06] VITALS: BP 124/83; PULSE 84; RESP 18; TEMP 36.6; O2SAT 99
--- OUTSIDE RECORDS SUMMARY | 2025-01-26 14:34 | XMS_ITS | Encounter Summary ---
Author Organization [facility] Address [address] [place] [address] Phone Care Team Providers Care Wireworker Name Role Phone Kelsey Osorio MD Primary Care Provider [phone] Encounter Details Date Type Department Care Team ([facility] Contact Info) Description 10/24/2016 Conversion Encounter [facility] [address] [place] [address] Social History Tobacco Use Types Packs/Day Years Used Date Smoking Tobacco: Never Comments:Never smoker Comments Unknown Sex and Gender Information Value Date Recorded Sex Assigned at Not on file Legal Sex Female 5:20 PM EDT Gender Identity Female 05/03/2020 2:49 PM EST Sexual Orientation Not on file documented as of this encounter Plan of Treatment Not on file documented as of this encounter Visit Diagnoses Not on filedocumented in this encounter Care Teams Wireworker Relationship Specialty Start Date End Date Kelsey Osorio MD [address] [place] [address] PCP - General 10/18/16 03/28/22 documented as of this encounter
--- OUTSIDE RECORDS SUMMARY | 2025-01-26 14:34 | XMS_ITS | Clinical Summary ---
Author Organization [facility] Facility Address [address] [place] [id number] Care Team Providers Care Magnet Valve Assembler Name Role Phone Kelsey Osorio MD Primary Care Provider Allergies No known active allergies Medications albuterol HFA (ProAir HFA) 108 (90 Base) MCG/ACT inhaler Inhale 2 puffs 08/20/2018 Active ibuprofen (ADVIL,MOTRIN) 200 MG tablet Take 600 mg by mouth Active Estarylla 0.25-35 MG-MCG per tablet Take 1 tablet by mouth 1 (one) time each day 05/26/2020 Active lisinopril 5 MG tablet TAKE 1 TABLET(5 MG) BY MOUTH 1 TIME EACH DAY 90 tablet 3 07/15/2021 Active Active Problems Problem Noted Date Diagnosed Date Chronic nephritic syndrome, minor glomerular abn ormality 06/19/2020 Mild intermittent asthma 02/10/2017 Overview (06/19/2020): Last Assessment & Plan: Last use of albuterol inhaler last month; had a cough (covid neg), used inhaler for a few days and then better and hasn't used since then IgA nephropathy 07/18/2014 Overview (06/19/2020): Hx of blood and protein in urine radha with viral illness. Followed by renal and has been doing well. Last Assessment & Plan: Followed by nephrology; had telehealth visit with them recently; sent in a urine specimen and hasn't heard back; BP normal here today; followed about once a year Hematuria 11/23/2013 Immunizations Immunization Administration Dates Next Due DTaP 5 11/28/2003, 2,06/19/2000,04/07,01/30/2000 H1N1 All Forms 01/11/2009 HPV, Quadrivalent 09/05/2011,04/24/2011,02/13/20 11 Hep A, 2 Dose 06/05/2015,12/01/2014 Hep B, Adolescent or Pediatric 08/06/2000,1999,01/17/2000 Hib (HbOC) 01/28/2000 Hib (PRP-T) 03/20/2001,06/19/2000,04/18/2000 IPV 11/28/2003, 2,08/06/2000,01/28 Influenza Split 02/06/2012,02/12/2011,11/21/2009 Influenza Split High Dose Pr eservative Free IM 01/25/2015 Influenza TIV (IM) 12/08/2008, 9,01/02/2007,02/03,03/08/2005,12/23/2003,01/29/2002 ,12/28/2001 Influenza, Quadrivalent, Pre servative Free 03/28/2020,12/25/2017,02/10/2017,10/30,12/01/2014,11/12/2013 MMR 11/28/2003,12/26/2000 Meningococcal MCV4P 02/10/2017,02/12/2011 Meningococcal, Unspecified 03/28/2020 PPD Test 03/28/2020 Pneumococcal Conjugate 06/01/2001,2000,04/18/2000,02/03 TD Preservative Free 03/28/2020 Tdap 02/12/2011 Varicella 02/06/2012,10/20/2007,12/26/2000 Family History Medical History Relation Comments Diabetes Father Hypertension Father Stroke Father Diabetes Mother Heart disease Mother Hypertension Mother Stroke Mother Relation Status Comments Father Alive Mother Alive Social History Tobacco Use Types Packs/Day Years Used Date Smoking Tobacco: Never Alcohol Use Standard Drinks/Week Comments No 0 (1 standard drink = 0.6 oz pur e alcohol) Comments Unknown Sex and Gender Information Value Date Recorded Sex Assigned at Not on file Legal Sex Female 5:26 PM EST Gender Identity Not on file Sexual Orientation Not on file Last Filed Vital Signs Vital Sign Reading Time Taken Comments Blood Pressure 112/68 07/08/2018 12:00 PM EDT Pulse 72 07/08/2018 12:00 PM EDT Temperature - - Respiratory Rate - - Oxygen Saturation - - Inhaled Oxygen Concentration - - Weight 57.5 kg (126 lb 11.2 oz) 020 12:00 PM EST Height 154.9 cm (5' 1 ) 03/06/2020 12:0 0 PM EST Body Mass Index 23.94 03/06/2020 12:00 PM EST Plan of Treatment Health Maintenance Due Date Last Done Comments Pneumococcal Vaccine: Peds ( 0 to 5 Years) and At-Risk Patients (6 to 49 Years) (1 of 2 - PCV) 11/21/2018 06/01/2001, 08/06/2000, 04/18/2000, Additional history exists Influenza Vaccine (#1) 2024 , 12/25/2017, 02/10/2017, Additional history exists Hepatitis B Vaccine Completed 08/06/2000, 02/22/2000, 01/17/2000 Pneumococcal Vaccine: 50+ Years Discontinued 06/01/2001, 08/06/2000, 04/18/2000, Additional history exists Insurance [place] [employer] [place] [employer] Care Teams Magnet Valve Assembler Relationship Specialty Start Date End Date Kelsey Osorio MD [address] [place] [address] [address] [id number] PCP - General 03/20/20
--- OUTSIDE RECORDS SUMMARY | 2025-01-26 14:34 | XMS_ITS | Clinical Summary ---
Author Organization [facility] Address [address] [place] [address] Phone Care Team Providers Care Guitar Teacher Name Role Phone Unavailable Primary Care Provider Unavailabl e Allergies No known active allergies Medications albuterol HFA 108 (90 Base) MCG/ACT inhalerIndicatio ns:Mild intermittent asthma without complication Inhale 2 puffs every 4 (four) hours as needed for wheezing or shortness of breath (cough). Please always use with aerochamber (spacer). 2 Units 1 9 Active Spacer/Aero-Hold ing Chambers (Valved Holding Chamber) device 0 Active norgestimate-eth inyl estradiol 0.25-35 MG-MCG per tablet Take 1 tablet by mouth daily. 1 Active Metoprolol-HCTZ ER 25-12.5 MG tablet sustained-releas e 24 hour Take by mouth. Activ e Active Problems Problem Noted Date Diagnosed Date Wears glasses 04/05/2021 Assessment & Plan (04/05/2021 10:34 AM EST): Just saw eye doc and waiting for contact rx but has glasses at home; didn't drive here Tachycardia 04/05/2021 Assessment & Plan (04/05/2021 10:54 AM EST): By report followed by Dr. Boyd and taking metoprolol for tachycardia; has MRI of heart tomorrow; advised to follow up with him as planned and ask for notes to be sent to us Chronic nephritic syndrome, minor glomerular abn ormality 06/19/2020 Personal history of COVID-19 06/13/2020 Overview (06/23/2020): Diagnosed June 08; advised no activity and to call us 2 weeks after illness to have follow up appointment Due to renal disease, had monoclonal antibody infusion on 06/16/20. Virtual visit done on 06/23/20 - symptoms resolving. Advised to have an in-person visit for cardiac clearance in the next 1-2 weeks. Assessment & Plan (11/02/2020 12:16 PM EDT): Had infusion on 06/16 for covid pos 06/07; so clear now to get vaccine (has been over 90 days): encouraged to go get it; showed her on line how to find a place to get it Mild intermittent asthma 02/10/2017 Overview (11/02/2020): Last Assessment & Plan: Last use of albuterol inhaler last month; had a cough (covid neg), used inhaler for a few days and then better and hasn't used since then Assessment & Plan (04/05/2021 10:34 AM EST): Last use inhaler January 2021; being on metoprolol hasn't exacerbated it Assessment & Plan (01/16/2021 10:45 AM EST): Assessment & Plan (11/02/2020 11:44 AM EDT): Hasn't used it much but sometime in the last year as needed Assessment & Plan (03/28/2020 8:39 AM EST): Last use of albuterol inhaler last month; had a cough (covid neg), used inhaler for a few days and then better and hasn't used since then Assessment & Plan (08/20/2018 11:44 AM EDT): Inhaler helped cough, though no wheeze Assessment & Plan (06/11/2018 2:39 PM EDT): Hasn't used it in a few months Assessment & Plan (02/10/2017 1:54 PM EST): Uses proair as needed; not often IgA nephropathy 07/18/2014 Overview (11/02/2020): Hx of blood and protein in urine radha with viral illness. Followed by renal and has been doing well. Hx of blood and protein in urine radha with viral illness. Followed by renal and has been doing well. Last Assessment & Plan: Followed by nephrology; had telehealth visit with them recently; sent in a urine specimen and hasn't heard back; BP normal here today; followed about once a year Assessment & Plan (04/05/2021 10:49 AM EST): Followed by nephrology; was on lisinopril but Lana stopped it since she's bee on the metoprolol from cardiology; advised that she should call nephrology today and see if she should restart it Assessment & Plan (03/28/2020 8:41 AM EST): Followed by nephrology; had telehealth visit with them recently; sent in a urine specimen and hasn't heard back; BP normal here today; followed about once a year Assessment & Plan (07/20/2018 6:30 PM EDT): Jesse Lana seen by renal last month and doing ok; await report Assessment & Plan (06/11/2018 3:08 PM EDT): Hasn't seen renal in awhile; # given to her and strongly encouraged to call for a follow up Assessment & Plan (02/10/2017 2:17 PM EST): BP stable; should have follow up with nephrology soon if not already this year--Dr. Mcfarland at [facility]; # [phone] Resolved Problems Problem Noted Date Diagnosed Date Resolved Date Recurrent urinary tract infection 04/05/2021 04/05/2021 Irregular menses 02/10/2017 03/28/2020 Assessment & Plan (07/20/2018 6:31 PM EDT): Unfortunately can't remember to take ocps on regular basis; so plans [facility]; discussed using ocps for first few months to decrease excess bleeding Assessment & Plan (06/11/2018 2:39 PM EDT): Had stopped ocps because cycle was off/had been forgetting; but plans to restart with next period Assessment & Plan (02/10/2017 2:08 PM EST): Will start control pills to regulate periods; to call if any trouble; otherwise recheck in 2 months; discussed side effects and use; handout given Allergic rhinitis 01/11/2009 03/28/2020 Assessment & Plan (08/20/2018 11:45 AM EDT): Zyrtec helped, is not allergic Immunizations Immunization Administration Dates Next Due DTaP 5 11/28/2003, 2,06/19/2000,04/07,01/30/2000 H1N1 01/11/2009 HPV, Quadrivalent 09/05/2011,04/24/2011,02/13/20 11 Hep A, ped/adol 06/05/2015,12/01/2014 Hep B, ped/adol 08/06/2000,02/22/2000,01/17/2000 Hib (HbOC) 01/28/2000 Hib (PRP-T) 03/20/2001,06/19/2000,04/18/2000 IPV 11/28/2003, 2,08/06/2000,01/28 Influenza Split 02/06/2012,02/12/2011,11/21/2009 Influenza, high-dose, trivalent, PF 01/25/2015 Influenza, injectable, quadr ivalent, preservative free 01/23/2021,03/28/2020,12/25/2017,02/10,10/31/2015,12/01/2014,11/12/2013 Influenza, injectable, trivalent 009,04/05/2008,01/02/2007,02/03,03/08/2005,12/23/2003,01/29/2002 ,12/28/2001 MMR 11/28/2003,12/26/2000 Meningococcal B Trumenba 11/02/2020,03/28/2020 Meningococcal Conj (Menactra) MCV4P 02/10/2017,1 04/15/2010 PPD Test 03/28/2020 Pneumococcal Conjugate 06/01/2001,2000,04/18/2000,02/03 Td (adult) (Tenivac), 5 Lf t etanus toxoid, PF, adsorbed 03/28/2020 Tdap 02/12/2011 Varicella 02/06/2012,10/20/2007,12/26/2000 Family History Medical History Relation Name Comments Asthma Brother 1 Randy Asthma Brother 2 Spencer Hypertension Mother Joellen Hyperlipidemia Paternal Grandfather Hypertension Paternal Grandfather COPD Paternal Grandmother Relation Name Status Comments Brother 1 Randy Alive triplet brother : Asthma, Asthma Brother 2 Spencer Alive triplet brother : Asthma, Asthma Father Alive Father: Alive a nd well Maternal Grandfather Maternal Grandmother Mother Joellen Alive Mother: Rheumat oid arthritis Other Family history of ADD/ADHD, Family history of Deafness, Family history of Migraines, Family history of Asthma, Family history of Diabetes mellitus, Family history of Seizure disorder Paternal Grandfather Alive Paternal Grandmother Social History Tobacco Use Types Packs/Day Years Used Date Smoking Tobacco: Never Smokeless Tobacco: Never Comments:Never smoker Alcohol Use Standard Drinks/Week Comments Yes 0 (1 standard drink = 0.6 oz pure alcohol) only occasionally; denies any concerns; encouraged avoidance Hunger/Food Answer Date Recorded In the last 12 months, did y ou or your family ever eat less than you felt you should because there wasn't enough money for food? No 03/31/2021 Stable Housing Answer Date Recorded Are you worried that in the next 2 months you may not have stable housing? No 03/31/2021 Transportation Concerns Answer Date Rec orded In the last 12 months, have you or your family ever had to go without healthcare because you didn't have a way to get there? No 03/31/2021 Hazards in Home Answer Date Recorded Think about the place you li ve. Do you have problems with any of the following? Pests (mice or roaches), mold, no/not working smoke detectors, water leaks, no window guards. No 2021 Financing Utilities Answer Date Recorde d In the last 12 months, has t he electric, gas, oil, or water company threatened to shut off your services in your home? No 03/31/2021 Safety at Home Answer Date Recorded Are you or your family worried about feeling saf e in your home? No 03/31/2021 Outside Support Answer Date Recorded Do you feel that you need mo re support from other people or programs to help you care for yourself or your family? No 03/31/2021 Understanding Health Concerns Answer Da te Recorded Do you need help understandi ng your or your child's healthcare needs (diagnosis, medications, plan, etc.)? No 03/31/2021 Financing Health Concerns Answer Date R ecorded In the last 12 months, was t here a time when your child needed to see a doctor or get medications or supplies but could not because of cost? No 03/31/2021 Missing School or Work Answer Date Jhon rded Did you or your child miss s chool or work because of a health problem that could have been avoided? No 03/31/2021 Comments No Sex and Gender Information Value Date Recorded Sex Assigned at Not on file Legal Sex Female 5:20 PM EDT Gender Identity Female 05/03/2020 2:49 PM EST Sexual Orientation Not on file Last Filed Vital Signs Vital Sign Reading Time Taken Comments Blood Pressure 130/75 04/05/2021 10:13 AM EST Pulse 95 04/05/2021 10:13 AM EST Temperature 36.6 C (97.9 F) 04/05/2021 10:13 AM EST Respiratory Rate - - Oxygen Saturation 100% 01/16/2021 10:12 AM EST Inhaled Oxygen Concentration - - Weight 58.6 kg (129 lb 3.2 oz) 04/05/2021 10:13 AM EST Height 156.2 cm (5' 1.5 ) 04/05/2021 10:13 AM ES T Body Mass Index 24.02 04/05/2021 10:13 AM EST Plan of Treatment Health Maintenance Due Date Last Done Comments Influenza Vaccines (#1) 2024 01/08/20 22, 01/23/2021, 03/28/2020, Additional history exists COVID-19 Vaccine (4 - 2024-2 6 season) 2024 08/30/2021, 12/06/2020, 11/05/2020 DTaP,Tdap,and Td Vaccines (8 - Td or Tdap) 03/28/2030 03/28/2020, 02/12/2011, 11/28/2003, Additional history exists HIB Vaccines Completed 03/20/2001, 06/08, 04/18/2000, Additional history exists Pneumococcal Vaccine Completed 06/01/2001, 08/06/2000, 04/18/2000, Additional history exists IPV Vaccines Completed 11/28/2003, 03/10, 08/06/2000, Additional history exists MMR Vaccines Completed 11/28/2003, 12/26/2000 HPV Vaccines Completed 09/05/2011, 04/10, 02/12/2011 Varicella Vaccines Completed 02/06/2012, 0 10/20/2007, 12/26/2000 Hepatitis A Vaccines Completed 06/05/2015, 12/02/19 Meningococcal Vaccine Completed 02/10/2017, 011 Men B Vaccine Completed 11/02/2020, 03/28/2020 Hepatitis B Vaccines Completed 02/21/2022, 09/21/2021, 08/22/2021, Additional history exists Procedures * Due to [place] [employer]spot[employer] law, this organization might not be sharing sensitive test results. Procedure Name Priority Date/Time Associated Diagnosis Comments CHLAMYDIA AND GONORRHEA, AMPLIFIED Routine 04/05/2021 11:00 AM EST Screening examination for bacterial and spirochetal disease from Last 3 Months or Most Recently Relevant to Health Maintenance Results * Due to [place] [employer] law, this organization might not be sharing sensitive test results. * Chlamydia and Gonorrhoea, Amplified (04/05/2021 11:00 AM EST) Chlamydia Trachomatis, DNA Probe NEGATIVE (NEG) [facility] Comment: No Chlamydia Trachomatis RNA detected in this patient's sample (REFERENCE RANGE/NORMAL VALUE: NOT DETECTED) Note: This test uses air defence officer- mediated amplification method to detect rRNA from C. Trachomatis URINE GC AMP PROBE NEGATIVE (NEG) [facility] Comment: No Neisseria Gonorrhoeae RNA detected in this patient's sample (REFERENCE RANGE/NORMAL VALUE: NOT DETECTED) NOTE: This test uses air defence officer-mediated amplification method to detect rRNA from N.Gonorrhoeae. A negative result does not preclude infection. In the case of a negative urine result, testing of an endocervical(female) or urethral (male) specimen is recommended if there is high clinical suspicion of infection. Due to very high sensitivity of Nucleic Acid Amplification Test, false positive results may occur. Therefore, specimen handling is extremely important. In patients in whom the disease is unlikely, additional sample for testing should be considered after an initial positive result. The performance characteristics of this test have not been evaluated in children. The Aptima Combo2 assay is not intended for the evaluation of suspected sexual abuse or for other medico-legal indications. The ordering provider should assess if the patient had consensual sex without risk of sexual abuse. Consult the [facility] if needed. Contact phone number . Therapeutic failure or success cannot be determined with the Aptima Combo2 assay since nucleic acid may persist following appropriate antimicrobial therapy. The Centers for Disease Control and Prevention (CDC) recommends confirmatory retesting using culture or a different nucleic acid amplification test when positive results occur, if indicated. Testing performed or reported by [facility], a Service of [facility], [address] [place] [id number] Pierre Estrada MD, Hoop Riveting Machine Operator Helper [facility]# [id number] Urine (Urine) 04/05/2021 11: 00 AM EST 04/05/2021 5:07 PM EST us Kelsey Osorio MD LAB MICROBIOLOGY - GENERAL ORD ERABLES Final Result [facility] from Last 3 Months or Most Recently Relevant to Health Maintenance Insurance [facility] [id number]
--- OUTSIDE RECORDS SUMMARY | 2025-01-26 14:34 | XMS_ITS | Encounter Summary ---
Author Organization [facility] Address [address] [place] [address] Phone Care Team Providers Care Route Delivery Driver Name Role Phone Kelsey Osorio MD Primary Care Provider [phone] Encounter Details Date Type Department Care Team ([facility] st Contact Info) Description 06/18/2012 Documentation [facility] Family Medicine [address] [place], [place] [id number] Family Medicine, Physician [address] [place], [place] [phone] Social History Tobacco Use Types Packs/Day Years Used Date Smoking Tobacco: Never Assessed Comments Unknown Sex and Gender Information Value Date Recorded Sex Assigned at Not on file Legal Sex Female 5:20 PM EDT Gender Identity Female 05/03/2020 2:49 PM EST Sexual Orientation Not on file documented as of this encounter Plan of Treatment Not on file documented as of this encounter Visit Diagnoses Not on filedocumented in this encounter Care Teams Route Delivery Driver Relationship Specialty Start Date End Date Kelsey Osorio MD [address] [place] [id number] PCP - General 10/18/16 03/28/22 documented as of this encounter
--- OUTSIDE RECORDS SUMMARY | 2025-01-26 14:34 | XMS_ITS | Encounter Summary ---
Author Organization [facility] Address [address] [place] [address] Phone Care Team Providers Care Project Development Coordinator Name Role Phone Kelsey Osorio MD Primary Care Provider [phone] Encounter Details Date Type Department Care Team (Late st Contact Info) Description 03/13/2011 Documentation [facility] [place] [address] [place] [address] Family Medicine, Physician [address], [place] [address] Social History Tobacco Use Types Packs/Day Years [...] on filedocumented in this encounter Care Teams Project Development Coordinator Relationship Specialty Start Date End Date Kelsey Osorio MD [address] [place] [id number] PCP - General 10/18/16 03/28/22 documented as of this encounter
--- OUTSIDE RECORDS SUMMARY | 2025-01-26 14:34 | XMS_ITS | Clinical Summary ---
Author Organization [facility] [address] [facility] Address [address] [place] [address] Phone Care Team Providers Care Director Meetings Name Role Phone Barbie Griffith MD Primary Care Provider [phone] Allergies Active Allergy Reactions Criticality Noted Date Comments Sulfamethoxazole-Trimethoprim 2024 Medications norgestimate-et hinyl estradioL (Tri-Estarylla) 0.18/0.215/0.25 mg-35 mcg (28) per tablet Take by mouth daily. Active zolpidem (AMBIEN) 10 mg tablet Take 1 tablet (10 mg total) by mouth at bedtime as needed. 09/23/2024 Active cyanocobalamin (VITAMIN B-12) 1,000 mcg tablet Take 1 tablet (1,000 mcg total) by mouth 1 (one) time each day. 90 each 1 11/05/2024 Active cholecalciferol (VITAMIN D-3) 25 mcg (1,000 unit) capsule Take 1 capsule (1,000 Units total) by mouth 1 (one) time each day. 90 capsule 1 11/05/2024 Active losartan (COZAAR) 50 mg tablet Take 1 tablet (50 mg total) by mouth 1 (one) time each day. 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 Drinking plenty of water. No change with BB, for now will keep dose the same obtain MRI then reassess Viral syndrome 01/19/2021 Chronic nephritic syndrome, minor glomerular abn ormality 06/19/2020 Mild intermittent asthma 02/10/2017 Overview (01/23/2024): Last Assessment & Plan: Last use of albuterol inhaler last month; had a cough (covid neg), used inhaler for a few days and then better and hasn't used since then Encounters Date Type Department Care Team Description 12/22/2024 3:00 PM EDT Office Visit Nephrology [address] [phone] Danny Jacques MD IgA nephropathy (Primary Dx) 12/14/[address] [phone] Danny Jacques MD 11/04/2024 11:00 AM EDT Office Visit Adult Medicine [address] [phone] Barbie Griffith MD PE (physical exam), annual (Primary Dx); Severe major depressive disorder (CMS/HCC V24, CMS/HCC V28); Hair loss 11/04/2024 Telephone Adult Medicine [address] [phone] Barbie Griffith MD from Last 3 Months Immunizations Immunization Administration Dates Next Due DTaP (Infanrix) 6wks to less than 7yo ,07/02/2001,06/19/2000,04/07,01/30/2000 ZUqT-AIU-PVI (Pentacel) 2mo to less than 5yo 01/28/2000 H1N1 Inj Preservative Free 01/11/2009 HPV, Quadrivalent 09/05/2011,04/24/2011,02/13/20 11 Hepatitis A Pediatric (Havri x; Vaqta) 12mo to less than 19yo 06/05/2015 Hepatitis B (Ddqiopk-Z-Zjcva , Recombivax HB-Adult) 19yo and older 02/21/2022,09/21/2021,08/22/2021 Hepatitis B Pediatric (Enger ix B; Recombivax HB) to less than 20 yo 08/06/2000,02/22/2000,01/17/2000 HiB PRP-T conjugate (Acthib, Hiberix) 6wks and older 03/20/2001,06/19/2000,04/18/2000 Influenza Quadravalent, MDCK , 0.5ml, preservative free (Flucelvax) 6mo and older 01/07/2022 Influenza Quadravalent, MDCK , 0.5ml, with preservative (Flucelvax) 6mo and older 01/23/2021 MMR, measles mumps and rubel la Live (Priorix; M-M-R II) 12mo and older 11/28/2003,12/26/2000 Meningococcal B, Recombinant (Trumenba) 16yo to less than 24yo 11/02/2020,03/28/2020 Meningococcal MCV4P 02/10/2017,02/12/2011 Pneumococcal Conjugate Vacci ne, 7 Valent 06/01/2001,08/06/2000,04/18/2000,02/03 Td Tetanus diptheria (Tdvax) 7yo and older 03/28/2020 Surgical History Surgery Date Site/Laterality Comments EYE SURGERY Lazy eye Medical History Medical History Date Comments IgA nephropathy DX:IgA nephropat hy Hypercholesteremia Asthma Family History Medical History Relation Name Comments Asthma Brother 1 Spencer gaytan Asthma Brother 2 Deandre gaytan Heart attack Father Brad Gaytan Heart disease Father Brad Gaytan Dementia Maternal Grandmother Illuminada Deida Ovarian cancer Maternal Grandmother Illuminada Deida Depression Mother Joellen Jovel Hypertension Mother Joellen Jovel Other: dvt Mother Joellen Jovel Other: tia Mother Joellen Joevl Relation Name Status Comments Brother 1 Spencer gaytan Brother 2 Deandre gaytan Father Brad Gaytan Maternal Grandmother Illuminada Deida Mother Joellen Jovel Social History Tobacco Use Types Packs/Day Years [...] care for your loved ones. For example, infant childcare provider or elderly care for an older adult? [...] PM EST Sexual Orientation Not on file Obstetrics History Last Filed Vital Signs Vital Sign Reading Time Taken Comments Blood Pressure 112/76 12/22/2024 3:13 PM EDT Pulse 99 12/22/2024 3:13 PM EDT Temperature 36.4 C (97.5 F) 11/04/2024 10:50 AM EDT Respiratory Rate 14 11/04/2024 10:5 0 AM EDT Oxygen Saturation 98% 11/04/2024 10: 50 AM EDT Inhaled Oxygen Concentration - - Weight 67.5 kg (148 lb 12.8 oz) 12/22/2024 3:13 PM EDT Height 157.5 cm (5' 2 ) 11/04/2024 10:5 0 AM EDT Body Mass Index 27.22 11/04/2024 10:50 AM EDT Plan of Treatment Upcoming Encounters Date Type Department Care Team (Late st Contact Info) Description 02/02/2025 1:15 PM EST Office Visit Adult Medicine [place] - [address] [phone] Oswaldo Liz PA [address] [place] [phone] 06/29/2025 3:15 PM EDT Office Visit Nephrology - [address] [phone] Danny Jacques MD [address] [place] [address] Health Maintenance Due Date Last Done Comments Pneumococcal Vaccine: Pediatrics (0 to 5 Years) and At-Risk Patients (6 to 49 Years) (1 of 1 - PPSV23, PCV20, or PCV21) 11/21/2005 06/01/2001, 08/06/2000, 04/18/2000, Additional history exists COVID-19 Vaccine ( season) 2024 08/30/2021, 12/06/2020, 11/05/2020 Social Influencers of Health Screening 08/31/2025 08/31/2024 Hepatitis C Screening 11/03/2025 Postpo nadine from 02/10/2022 (Patient Refused) HIV Screening 11/04/2025 Postponed from 02/10/2022 (Patient Refused) Cervical Cancer Screening: Pap Smear 06/12/2027 06/11/2024, 06/03/2024 Cholesterol Screening (Lipid Panel) 11/04/2029 11/04/2024, 11/06/2023, 11/06/2023 DTaP,Tdap,and Td Vaccines (8 - Td or Tdap) 03/28/2030 03/28/2020, 02/12/2011, 11/28/2003, Additional history exists RSV Immunization Adult Patients (1 - 1-dose 75+ series) 11/21/2074 HIB Vaccines Completed 03/20/2001, 06/08, 04/18/2000, Additional history exists IPV Vaccines Completed 11/28/2003, 03/10, 08/06/2000, Additional history exists MMR Vaccines Completed 11/28/2003, 12/26/2000 Varicella Vaccines Completed 02/06/2012, 0 10/20/2007, 12/26/2000 Hepatitis A Vaccines Completed 06/05/2015, 12/02/19 Meningococcal ACWY Vaccine Completed 03/28, 02/10/2017, 02/12/2011 Meningococcal B Vaccine Completed 11/02/2020, 03/28 Hepatitis B Vaccines Completed 02/21/2022, 09/21/2021, 08/22/2021, Additional history exists Gonorrhea/Chlamydia Screening Discontinued 11/06/2023 HPV Vaccines Completed 06/03/2024, 08/09, 04/24/2011, Additional history exists Depression Screening Completed 08/31/2024 Influenza Vaccine Completed 12/13/2024, , 12/07/2022, Additional history exists RSV Immunization Patients Under 20 months Aged Out No longer eligible based on patient's age to complete this topic Procedures Procedure Name Priority Date/Time Associated Diagnosis Comments CBC WITH AUTO DIFFERENTIAL Routine 11/04/2024 11:56 AM EDT PE (physical exam), annual CBC AND DIFFERENTIAL Routine 11/04/2024 11:56 AM EDT PE (physical exam), annual COMPREHENSIVE METABOLIC PANEL Routine 11/04/2024 11:56 AM EDT PE (physical exam), annual LIPID PANEL WITH REFLEX TO DIRECT LDL Routine 11/04/2024 11:56 AM EDT PE (physical exam), annual VITAMIN B12 AND FOLATE Routine 11:56 AM EDT Hair loss FERRITIN Routine 11/04/2024 11:56 AM EDT Hair loss IRON AND TIBC Routine 11/04/2024 11:56 AM EDT Hair loss VITAMIN D 25 HYDROXY Routine 11/04/2024 11:56 AM EDT Hair loss THYROID STIMULATING HORMONE WITH REFLEX TO FREE T4 AND FREE T3 Routine 11/04/2024 11:56 AM EDT Hair loss HM GONORRHEA/CHLAMYDIA SCRREENING Routine 11/06/2023 from Last 3 Months or Most Recently Relevant to Health Maintenance Results * Thyroid stimulating hormone with reflex to free t4 and free t3 (11/04/2024 11:56 AM EDT) TSH 1.20 0.40 - 4.00 mcIU/mL LAB CHEMISTRY METHOD 11/04/2024 5:43 PM EDT [facility] Blood Venous blood specimen / Unknown Venipuncture / Unknown 11/04/2024 11:56 AM EDT 11/04/2024 11:56 AM EDT us Barbie Griffith MD LAB BLOOD ORDERABLES Final Resul t Performing Organization Address [facility] de Phone Number [facility] [address] [place] [address], [place] [phone] * (ABNORMAL) Vitamin B12 and folate (11/04/2024 11:56 AM EDT) [facility] Vitamin B-12 207(L) 250 - 900 pcg/mL LAB CHEMISTRY METHOD 11/04/2024 4:47 PM EDT [facility] Folate 6.4 2.8 - 17.0 ng/ml LAB CHEMISTRY METHOD 11/04/2024 4:47 PM EDT [facility] Blood Venous blood specimen / Unknown Venipuncture / Unknown 11/04/2024 11:56 AM EDT 11/04/2024 11:56 AM EDT us Barbie Griffith MD LAB BLOOD ORDERABLES Final Resul t Performing Organization Address [facility] de Phone Number [facility] [address] [place] [address], [place] [phone] * (ABNORMAL) Lipid panel with reflex to direct LDL (11/04/2024 11:56 AM EDT) [facility] Cholesterol 218(H) 0 - 200 mg/dL LAB CHEMISTRY METHOD 11/04/2024 4:47 PM EDT [facility] Triglycerides 145 0 - 150 mg/dL LAB CHEMISTRY METHOD 11/04/2024 4:47 PM EDT [facility] HDL 68 >=40 mg/dL LAB CHEMISTRY METHOD 11/04/2024 4:47 PM EDT [facility] LDL Calculated 121(H) 0 - 100 mg/dL LAB CHEMISTRY METHOD 11/04/2024 4:47 PM EDT [facility] Comment:Estimated LDL Calcul ated using equation: Total cholesterol - HDL cholesterol - (Triglycerides/5) VLDL Cholesterol Rold[place] 29 mg/dL LAB CHEMISTRY METHOD 11/04/2024 4:47 PM EDT [facility] Non HDL Chol. (LDL+VLDL) 150(H) <145 mg/dL LAB CHEMISTRY METHOD 11/04/2024 4:47 PM EDT [facility] Chol/HDL Ratio 3.2 0.0 - 4.4 LAB CHEMISTRY METHOD 11/04/2024 4:47 PM EDT [facility] Blood Venous blood specimen / Unknown Venipuncture / Unknown 11/04/2024 11:56 AM EDT 11/04/2024 11:56 AM EDT us Barbie Griffith MD LAB BLOOD ORDERABLES Final Resul t [facility] [address] [place] [address], * (ABNORMAL) CBC auto differential (11/04/2024 11:56 AM EDT) WBC 8.6 4.8 - 10.8 [facility] LAB HEMETOLOGY METHOD 11/04/2024 1:57 PM EDT [facility] RBC 5.10(H) 3.80 - 4.80 M/mcL LAB HEMETOLOGY METHOD 11/04/2024 1:57 PM EDT [facility] Hemoglobin 14.4 11.5 - 16.0 g/dL LAB HEMETOLOGY METHOD 11/04/2024 1:57 PM EDT [facility] Hematocrit 45.2 35.0 - 47.0 % LAB HEMETOLOGY METHOD 11/04/2024 1:57 PM EDT [facility] MCV 89.0 79.0 - 98.0 FL LAB HEMETOLOGY METHOD 11/04/2024 1:57 [facility] MCH 28.3 27.0 - 32.0 pcg LAB HEMETOLOGY METHOD 11/04/2024 1:57 PM [facility] MCHC 31.9(L) 32.0 - 37.0 g/dL LAB HEMETOLOGY METHOD 11/04/2024 1:57 PM [facility] RDW 13.1 11.0 - 15.0 % LAB HEMETOLOGY METHOD 11/04/2024 1:57 PM [facility] Platelets 379 130 - 400 K/mcL LAB HEMETOLOGY METHOD 11/04/2024 1:57 PM [facility] MPV 9.9 7.0 - 11.0 FL LAB HEMETOLOGY METHOD 11/04/2024 1:57 PM [facility] NRBC 0.0 <1.0 % LAB HEMETOLOGY METHOD 11/04/2024 1:57 PM [facility] NRBC Absolute 0.00 <0.10 K/mcL LAB HEMETOLOGY METHOD 11/04/2024 1:57 PM [facility] Neutrophils Relative 62.6 % LAB HEMETOLOGY METHOD 11/04/2024 1:57 PM [facility] Lymphocytes Relative 30.2 % LAB HEMETOLOGY METHOD 11/04/2024 1:57 PM [facility] Monocytes Relative 5.7 % LAB HEMETOLOGY METHOD 11/04/2024 1:57 PM [facility] Eosinophils Relative 0.5 % LAB HEMETOLOGY METHOD 11/04/2024 1:57 PM [facility] Basophils Relative 0.8 % LAB HEMETOLOGY METHOD 11/04/2024 1:57 PM EDT [facility] Immature Granulocytes Relative 0.2 % LAB HEMETOLOGY METHOD 11/04/2024 1:57 PM EDT [facility] Neutrophils Absolute 5.38 1.50 - 7.00 K/mcL LAB HEMETOLOGY METHOD 11/04/2024 1:57 PM EDT [facility] Lymphocytes Absolute 2.59 1.00 - 5.00 K/mcL LAB HEMETOLOGY METHOD 11/04/2024 1:57 PM EDT [facility] Monocytes Absolute 0.49 0.20 - 1.00 K/mcL LAB HEMETOLOGY METHOD 11/04/2024 1:57 PM EDT [facility] Eosinophils Absolute 0.04 0.00 - 0.50 K/mcL LAB HEMETOLOGY METHOD 11/04/2024 1:57 PM EDT [facility] Basophils Absolute 0.07 0.00 - 0.20 K/mcL LAB HEMETOLOGY METHOD 11/04/2024 1:57 PM EDT [facility] Immature Granulocytes Absolute 0.02 0.00 - 0.03 K/mcL LAB HEMETOLOGY METHOD 11/04/2024 1:57 PM EDT [facility] Blood Venous blood specimen / Unknown Venipuncture / Unknown 11/04/2024 11:56 AM EDT 11/04/2024 11:56 AM EDT us Barbie Griffith MD LAB BLOOD ORDERABLES Final Resul t [facility] [address] [place] [address], * Iron and TIBC (11/04/2024 11:56 AM EDT) Iron 75 40 - 150 mcg/dL LAB CHEMISTRY METHOD 11/04/2024 4:47 PM EDT [facility] TIBC 413 250 - 450 mcg/dL LAB CHEMISTRY METHOD 11/04/2024 4:47 PM EDT [facility] Iron Saturation 18 15 - 50 % LAB CHEMISTRY METHOD 11/04/2024 4:47 PM EDT [facility] Blood Venous blood specimen / Unknown Venipuncture / Unknown 11/04/2024 11:56 AM EDT 11/04/2024 11:56 AM EDT us Barbie Griffith MD LAB BLOOD ORDERABLES Final Resul t Performing Organization Address City/[facility]/ZIP Co de Phone Number [facility] [address] [place] [address], [place] [phone] * (ABNORMAL) Vitamin D 25 hydroxy (11/04/2024 11:56 AM EDT) Vit D, 25-Hydroxy 23.9(L) 30.0 - 80.0 ng/mL LAB CHEMISTRY METHOD 11/04/2024 5:43 PM EDT [facility] Blood Venous blood specimen / Unknown Venipuncture / Unknown 11/04/2024 11:56 AM EDT 11/04/2024 11:56 AM EDT us Barbie Griffith MD LAB BLOOD ORDERABLES Final Resul t Performing Organization Address City/[facility]/ZIP Co de Phone Number [facility] [address] [place] [address], [place] [phone] * Ferritin (11/04/2024 11:56 AM EDT) Ferritin 37 8 - 252 ng/mL LAB CHEMISTRY METHOD 11/04/2024 4:47 PM EDT [facility] Blood Venous blood specimen / Unknown Venipuncture / Unknown 11/04/2024 11:56 AM EDT 11/04/2024 11:56 AM EDT us Barbie Griffith MD LAB BLOOD ORDERABLES Final Resul t [facility] [address] [place] [address], [place] [phone] * (ABNORMAL) Comprehensive metabolic panel (11/04/2024 11:56 AM EDT) Sodium 137 133 - 145 mmol/L LAB CHEMISTRY METHOD 11/04/2024 4:47 PM [facility] Potassium 4.4 3.5 - 5.5 mmol/L LAB CHEMISTRY METHOD 11/04/2024 4:47 PM [facility] Chloride 106 96 - 110 mmol/L LAB CHEMISTRY METHOD 11/04/2024 4:47 PM [facility] CO2 26 21 - 32 mmol/L LAB CHEMISTRY METHOD 11/04/2024 4:47 PM [facility] Anion Gap 5 3 - 11 LAB CHEMISTRY METHOD 11/04/2024 4:47 PM [facility] Glucose 68(L) 70 - 100 mg/dL LAB CHEMISTRY METHOD 11/04/2024 4:47 PM [facility] BUN 10 5 - 25 mg/dL LAB CHEMISTRY METHOD 11/04/2024 4:47 PM [facility] Creatinine 0.67 0.50 - 1.10 mg/dL LAB CHEMISTRY METHOD 11/04/2024 4:47 PM [facility] eGFR 125 >=60 mL/min/1. 73m2 LAB CHEMISTRY METHOD 11/04/2024 4:47 PM [facility] Comment:Calculation based on the Chronic Kidney Disease Epidemiology Collaboration (CKD-EPI) equation refit without adjustment for race. BUN/Creatinine Ratio 14.9 LAB CHEMISTRY METHOD 11/04/2024 4:47 PM [facility] Calcium 9.2 8.5 - 10.5 mg/dL LAB CHEMISTRY METHOD 11/04/2024 4:47 PM EDT [facility] AST (SGOT) 12 10 - 42 unit/L LAB CHEMISTRY METHOD 11/04/2024 4:47 PM [facility] ALT (SGPT) 15 10 - 60 unit/L LAB CHEMISTRY METHOD 11/04/2024 4:47 PM EDT [facility] Alkaline Phosphatase 91 42 - 121 unit/L LAB CHEMISTRY METHOD 11/04/2024 4:47 PM EDT [facility] Total Protein 7.0 6.0 - 8.0 g/dL LAB CHEMISTRY METHOD 11/04/2024 4:47 PM [facility] Albumin 3.5 3.2 - 5.0 g/dL LAB CHEMISTRY METHOD 11/04/2024 4:47 PM [facility] Total Bilirubin 0.4 0.0 - 1.4 mg/dL LAB CHEMISTRY METHOD 11/04/2024 4:47 PM [facility] Blood Venous blood specimen / Unknown Venipuncture / Unknown 11/04/2024 11:56 AM EDT 11/04/2024 11:56 AM EDT Barbie Griffith MD LAB BLOOD ORDERABLES Final Resul t [facility] [address] [place] [address], * Gonorrhea/Chlamydia Screening (11/06/2023) Gonorrhea/Chla mydia Screening abstracted Historical Provider HEALTH MAINTENANCE Final Result from Last 3 Months or Most Recently Relevant to Health Maintenance Insurance [facility] Care Teams Director Meetings Relationship Specialty Start Date End Date Barbie Griffith MD [address] [place] [phone] PCP - General Internal Medicine 01/10/24
--- OUTSIDE RECORDS SUMMARY | 2025-01-26 14:34 | XMS_ITS | Encounter Summary ---
Author Organization [facility] Address [address] [place] [address] Phone Care Team Providers Care Tool Machinist Name Role Phone Kelsey Osorio MD Primary Care Provider Encounter Details Date Type Department Care Team ([facility] st Contact Info) Description 08/20/2012 Documentation [facility] [place] [address] [place] [address] Family Medicine, Physician [address], [place] [phone] Social History Tobacco Use Types Packs/Day Years [...] on filedocumented in this encounter Care Teams Tool Machinist Relationship Specialty Start Date End Date Kelsey Osorio MD [address] [place] [phone] PCP - General 10/18/16 03/28/22 documented as of this encounter
--- OUTSIDE RECORDS SUMMARY | 2025-01-26 14:34 | XMS_ITS | Encounter Summary ---
Author Organization [facility] Address [address] [place] [address] Phone Care Team Providers Care Manager Sales Name Role Phone Kelsey Osorio MD Primary Care Provider [phone] Encounter Details Date Type Department Care Team (Late st Contact Info) Description 10/08/2009 Documentation [facility] [place] Family Medicine [address] [place], [place] [id number] Family Medicine, Physician [address], [place] [phone] Social History Tobacco Use Types Packs/Day Years [...] on filedocumented in this encounter Care Teams Manager Sales Relationship Specialty Start Date End Date Kelsey Osorio MD [address] [place] [phone] PCP - General 10/18/16 03/28/22 documented as of this encounter
--- OUTSIDE RECORDS SUMMARY | 2025-01-26 14:34 | XMS_ITS | Encounter Summary ---
Author Organization [facility] Address [address] [place] [address] Phone Care Team Providers Care Hse Specialist Name Role Phone Kelsey Osorio MD Primary Care Provider [phone] Encounter Details Date Type Department Care Team ([facility] st Contact Info) Description 08/23/2010 Documentation [facility] [place] Family Medicine [address] [place] [address] Family Medicine, Physician [address], [place] [phone] Social History Tobacco Use Types Packs/Day Years [...] on filedocumented in this encounter Care Teams Hse Specialist Relationship Specialty Start Date End Date Kelsey Osorio MD [address] [place] [id number] PCP - General 10/18/16 03/28/22 documented as of this encounter
--- OUTSIDE RECORDS SUMMARY | 2025-01-26 14:34 | XMS_ITS ---
Author Name [facility] Organization Unknown Care Team Organization Name Specialty Phone Email Start Date End Da te [facility] Ruby Fletcher Primary Care 01/15/2022 4
== END 2025-01-26 05:08 | disposition home or self-care (01) ==
LOC: HO.ED 04:58
PROVIDERS: Emergency Provider Emergency Medicine; PCP Internal Medicine
DX: N39.0 Urinary tract infection, site not specified (principal); R10.24 Suprapubic pain; R30.0 Dysuria
CPT/HCPCS: 36415; 80053; 81001; 81025; 85025; 87086; 99283; 99284